=== PATIENT | male | born 1975 | race Caucasian/White ===

== ENCOUNTER → 2017-09-22 | Outpatient (CLI) | payer OTHER ==
[~2017-09-22] MED LIST: KLN5X PO; PRLSR20 PO; SERT-234 PO; TRAM-10 PO
--- NOTE | 2017-09-22 20:43 | DIAGNOSTIC IMAGING REPORT ---
ORBIT RADIOGRAPHS 4 VIEWS HISTORY: pre-MRI screening. COMPARISON: None. FINDINGS: There are no radiopaque foreign bodies identified within the orbits. IMPRESSION: No radiopaque foreign bodies identified within the orbits. Electronically signed by: Ernesto Gilliam M.D. 09/22/2017 8:42 PM Dictated Date/Time: 09/22/2017 8:41 PM
--- NOTE | 2017-09-22 23:18 | DIAGNOSTIC IMAGING REPORT ---
LUMBAR SPINE MRI HISTORY: Right-sided back pain. TECHNIQUE: Multiplanar multisequence MRI of the lumbar spine was performed without the use of contrast. COMPARISON: None. FINDINGS: For the purpose of the report the L5-S1 disc space will be located on axial image 27 of 30. 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 Mild disc space narrowing at L1-L2 and L4-L5. No fracture or subluxation within the lumbar spine. Mild endplate edema at L1-L2 is likely due to degenerative change. There are small endplate osteophytes at this level. The conus terminates at the T12-L1 disc space. No suspicious lesions seen within the visualized osseous structures. Paraspinal soft tissues are unremarkable. L1-L2: Small broad-based posterior disc bulge resulting without significant central canal narrowing. No significant neural foraminal narrowing. L2-L3: Minimal broad-based posterior disc bulge with a left paracentral focal annular tear. No significant central canal or neural foraminal narrowing. L3-L4: No significant central canal or neural foraminal narrowing. L4-L5: Minimal broad-based posterior disc bulge with a tiny focal central annular tear. No significant central canal or neural foraminal narrowing. L5-S1: No significant central canal or neural foraminal narrowing. IMPRESSION: 1. Multilevel mild degenerative changes as described above without significant central canal or neural foraminal narrowing. 2. Small focal annular tears at L2-L3 and L4-L5. No disc herniations identified. 3. No fracture or subluxation. Electronically signed by: Ernesto Gilliam M.D. 09/22/2017 11:17 PM Dictated Date/Time: 09/22/2017 11:10 PM
== END | disposition home or self-care (01) ==
LOC: C.MRI 19:58
PROVIDERS: ATTEND Physician Assistant
DX: Z01.818 Encounter for other preprocedural examination (principal); M51.36 Other intervertebral disc degeneration, lumbar region; M54.16 Radiculopathy, lumbar region

== ENCOUNTER 2018-04-07 19:25 | Emergency (ER) | payer OTHER ==
[~2018-04-07] VITALS: Ht 175.3 cm; Wt 56.4 kg
[~2018-04-07 19:25] MED LIST changes: -KLN5X PO; -PRLSR20 PO; -SERT-234 PO; -TRAM-10 PO; +TRAZ50TA35 PO; +WLLSR100 PO
[2018-04-07 19:29] VITALS: TEMP 36.8; Ht 175.3 cm; Wt 56.4 kg
[2018-04-07] MEDS ORDERED: PROPARACAINE HCL 0.5% OP SOLN 15 ML BTL OP STA (19:35)
[2018-04-07] MEDS ORDERED: CIPROFLOXACIN HCL 0.3% OP SOLN 2.5 ML BTL OP ONE (20:15)
[2018-04-07 20:38] VITALS: BP 119/76; PULSE 58; O2SAT 98
--- NOTE | 2018-04-13 13:15 | EMERGENCY ROOM VISIT NOTE ---
ED Visit Note First contact with patient: 19:36 Chief Complaint: I have a piece of metal in my right eye. History of Present Illness: Mr. Prieto is a 42-year-old white male who ambulates into the ED complaining of a possible foreign metal body in the right eye. Patient reports he was working on his car at home last evening and today when he woke up he had sensations of a foreign body in the right eye. He reports he has had previous that had to be removed by an merchandise presentation manager because of its depth. Currently he is complaining of a achy/stinging sensation in right eye. He rates his discomfort 3/10. His pain is nonradiating. He has not identified any aggravating or relieving. He has not taken any medications for pain prior to arrival at the hospital. Associated with his symptoms he has noted some redness of the sclera and mild light sensitivity. He denies fevers, chills, sweats, visual changes, floaters, flashing light, decrease in vision, eye drainage/tearing. Review of Systems: As noted above in history of present illness. Past Medical History: Gastric reflux, unspecified neck surgery, vasectomy, unspecified facial surgery and dental surgery. Current Medications: Trazodone, buspirone. Allergies to Medications: Hydrocodone. Social History: Patient is currently employed; he feels safe in his home environment; he denies tobacco use admits to social alcohol use. Tetanus Immunization Status: Patient reports up-to-date. Physical Examination: Vital Signs: Date Time Temp Pulse Resp B/P (MAP) Pulse Ox O2 Delivery O2 Flow Rate FiO2 04/07/18 20:38 58 16 119/76 98 04/07/18 19:29 36.8 75 18 120/87 98 Room Air GENERAL: 42-year-old male in no acute distress, nontoxic-appearing, afebrile and hemodynamically stable. NEUROLOGICAL: Awake, alert and oriented to person, place and time. Answering questions appropriately and following commands. Normal gait. Good hand eye coordination. SKIN: Warm, dry and pink. No soft tissue eruptions or trauma noted. HEENT: Atraumatic and normocephalic. PERRLA. EOMI without nystagmus. Sclera mildly injected and conjunctiva pink without drainage. No foreign bodies noted under the eyelids. Small dark foreign body noted at the bed it in the right cornea at the 3 o'clock position. Anterior chamber was clear. Visual acuity: Right 20/40 without correction, Left 20/30 without correction. ED Course: Patient is assessed as noted above. Patient's medication list was reviewed. Alcaine was used to anesthetize the eye for examination and attempts to remove the foreign body. I initially tried to swab the eye after examination with a sterile Q-tip with sterile saline and was unsuccessful. I then used a small tuberculin needle to lift the foreign body off the cornea and on 3 separate occasions it broke. The deeper portions of the foreign body was not able to be removed. Patient was educated about today's findings and instructed on his treatment plan ; he verbalized understanding and agreement with this plan. Clinical Impression: Right corneal foreign body. Disposition: Patient discharged home in stable condition; prior to departure he was reassessed and subjectively reported he was feeling slightly better and rated his discomfort 1/10. He denied any vision changes. Plan: Patient was encouraged to alternate ibuprofen and acetaminophen for persistent pain. Patient was encouraged to use 2 drops of Ciloxan in the right eye every 4 hours while awake. Patient was encouraged to follow-up with Dr. Vipul Martini, merchandise presentation manager for definitive care and treatment. Patient was encouraged return to the ED for worsening/uncontrolled pain, any visual changes, fevers, headaches, vomiting or any new/concerning symptoms
== END 2018-04-07 20:40 | disposition home or self-care (01) ==
LOC: C.EDB 19:26 → C.EDD 20:40
DX: T15.01XA Foreign body in cornea, right eye, initial encounter (principal); X58.XXXA Exposure to other specified factors, initial encounter; Z88.8 Allergy status to other drugs, medicaments and biological substances